=== PATIENT | male | born 1970 | race Caucasian/White ===

== ENCOUNTER → 2019-01-03 | Outpatient (CLI) | payer BC ==
--- NOTE | 2019-01-03 14:03 | RADIOLOGY REPORT (SQ) ---
EXAM DESCRIPTION: MRI RT UPPER JOINT WITHOUT COMPLETED DATE/TIME: 01/03/2019 1:46 pm REASON FOR STUDY: PAIN IN RIGHT SHOULDER M54.12 RADICULOPATHY, CERVICAL REGION M25.511 PAIN IN RIG HT SHOULDER COMPARISON: None. TECHNIQUE: Right shoulder images acquired and stored on PACS. Multiplanar imaging to include fat sen sitive sequences such as T1, water sensitive sequences such as FST2/STIR, cartilage sensitive sequenc es such as FSPD/gradient-echo sequences. LIMITATIONS: None. FINDINGS: BONE MARROW AND CORTEX: No worrisome bone lesions or marrow replacement. No occult fractur es. Small subcortical cysts are present along the anterior right humeral head greater tuberosity axi al image 9 JOINT OR BURSAL EFFUSION: No significant joint or bursal fluid. No suggestion of loose bodies. GLENO-HUMERAL ARTICULATION: Normal articulation. No subluxation. No cystic change. No osteophytes or cartilage loss. ACROMION AND AC JOINT: Type 2 acromion. No down-sloping or distal spur. Sub-acromial space maintain ed. No significant AC joint arthropathy. ROTATOR CUFF AND INTERVAL: There is tendinopathy throughout the distal supraspinatus tendon with a pa rtial thickness undersurface tear along anterior edge, best shown on axial image 7-9 and coronal imag e 11-14. Mild diffuse undersurface tendinopathy of the infraspinatus. subscapularis is intact. No muscle atrophy. No rotator interval tear. No rotator interval thickening to suggest adhesive capsulitis. LABRUM AND BICEPS LABRAL COMPLEX: Intact. No labral tear. Intra-articular long-head biceps tendon n ormal. Distal biceps in normal location in bicipital groove. REMAINDER OF LABRUM AND IGHL : No gross tear or paralabral cyst formation. Labral evaluation is less than optimal without joint distention. No thickening of IGHL to suggest adhesive capsulitis. PERIARTICULAR AND ADJACENT SOFT TISSUES: No masses or abnormal nodes. OTHER: No other significant finding. IMPRESSION: Supraspinatus and infraspinatus tendinopathy. Partial thickness undersurface tear anter ior edge supraspinatus tendon TECHNICAL DOCUMENTATION: JOB ID: [id number] [employer]- All Rights Reserved Reading location - IP/workstation name: [email or web address]
--- NOTE | 2019-01-03 14:27 | RADIOLOGY REPORT (SQ) ---
EXAM DESCRIPTION: MRI CERVICAL SPINE WITHOUT COMPLETED DATE/TIME: 01/03/2019 1:46 pm REASON FOR STUDY: RADICULOPATHY, CERVICAL M54.12 RADICULOPATHY, CERVICAL REGION M25.511 PAIN IN RI GHT SHOULDER COMPARISON: None. TECHNIQUE: Sagittal and Axial imaging includes T1, T2, STIR and gradient echo sequences. LIMITATIONS: None. FINDINGS: ALIGNMENT: Normal. VERTEBRAE: Intact. BONE MARROW: Normal. No marrow replacement or reactive changes. DISCS: There is slightly decreased signal intensity from C2 to C5. HARDWARE: None in the spine. CORD AND BASE OF BRAIN: Normal in size and signal intensity. SOFT TISSUES: No soft tissue masses. C1-C2: No significant spinal stenosis. C2-C3: No significant spinal stenosis or exit foraminal stenosis. C3-C4: Very shallow broad-based disc/ osteophyte complex with no central canal stenosis. Left forami nal stenosis secondary to uncovertebral osteophytes. C4-C5: No significant spinal stenosis or exit foraminal stenosis. C5-C6: No significant spinal stenosis or exit foraminal stenosis. C6-C7: Mild left foraminal stenosis secondary to uncovertebral osteophytes. C7-T1: No significant spinal stenosis or exit foraminal stenosis. UPPER THORACIC: Incompletely imaged. No significant spinal stenosis or exit foraminal stenosis. OTHER: No other significant finding. IMPRESSION: There is mild left foraminal stenosis at C3-4 and at C6-7 secondary to the presence of u ncovertebral osteophytes. There are no significant disc protrusions. Findings as described. TECHNICAL DOCUMENTATION: JOB ID: [id number] [employer]- All Rights Reserved Reading location - IP/workstation name: [email or web address]
== END ==
LOC: RAD 12:12
PROVIDERS: ATTEND Orthopaedic Surgery
DX: M75.111 Incomplete rotator cuff tear or rupture of right shoulder, not specified as traumatic (principal); M54.12 Radiculopathy, cervical region; M25.511 Pain in right shoulder; M48.02 Spinal stenosis, cervical region
CPT/HCPCS: 72141